=== PATIENT | male | born 1965 | race Caucasian/White ===

== ENCOUNTER → 2019-05-28 | Emergency (ER) | payer OTHER ==
[~2019-05-28] MED LIST: MANNITOL 25% INJ 12.5 GM/50 ML VIAL IV ONE; MANNITOL IV ONE; NICARDIPINE HCL RTU, ISO-OS 20 MG/200 ML RTUINJ IV ONE; NICARDIPINE HCL RTU, ISO-OS 20 MG/200 ML RTUINJ IV PRN; NORMAL SALINE 1000 ML 1,000 ML IV ONE; TRANEXAMIC ACID INJ/PF 1,000 MG/10 ML SDV IV ONE
[2019-05-28] MEDS: NICARDIPINE HCL RTU, ISO-OS 20 MG/200 ML RTUINJ IV PRN ×2 (15:20→17:10)
--- NOTE | 2019-05-28 15:20 | RADIOLOGY REPORT (SQ) ---
EXAM DESCRIPTION: CT HEAD WITHOUT COMPLETED DATE/TIME: 05/28/2019 3:00 pm REASON FOR STUDY: stroke like s.sx COMPARISON: None. TECHNIQUE: Axial images acquired through the brain without intravenous contrast. Images reviewed wi th bone, brain and subdural windows. Additional sagittal and coronal reconstructions were generated. Images stored on PACS. All CT scanners at this facility use dose modulation, iterative reconstruction, and/or weight based d osing when appropriate to reduce radiation dose to as low as reasonably achievable (ALARA). [facility]: Dose Right [facility]: CareDose [facility]: Dose Right [facility]: Teradose 4D [facility]: Smart [place] RADIATION DOSE: CT Rad equipment meets quality standard of care and radiation dose reduction techniq ues were employed. CTDIvol: 53.2 mGy. DLP: 1044 mGy-cm. mGy. LIMITATIONS: None. FINDINGS: VENTRICLES: Normal size and contour. CEREBRUM: There is a large area of intraparenchymal hemorrhage centered within the left parietooccipi edson lobe measuring 5.4 x 5.0 x 4.5 cm (series 2, image 21 and series 401, image 44). There is associ ated effacement of the occipital horn of the left lateral ventricle. There is also extra-axial exten sharla of the blood products along the left holo hemisphere measuring up to 4 mm maximally. There is r ightward midline shift measuring 1.0 cm. There is also associated diffuse sulcal effacement of the l eft hemisphere. There is adjacent confluent hypoattenuation within the left parietal and occipital l obes compatible with edema. No other evidence of large vascular territory infarct. Remaining daniel-w juan differentiation appears preserved. CEREBELLUM: No masses. No hemorrhage. No alteration of density. No evidence for acute infarction. EXTRAAXIAL SPACES: Extra-axial extension of blood products along the left holo hemisphere measuring 4 mm maximally. Diffuse sulcal effacement on the left. ORBITS AND GLOBE: No intra- or extraconal masses. Normal contour of globe without masses. CALVARIUM: No evidence of acute bony abnormality. PARANASAL SINUSES: No fluid or mucosal thickening. SOFT TISSUES: No mass or hematoma. OTHER: No other significant finding. IMPRESSION: 1. Intraparenchymal hemorrhage centered within the left parietooccipital lobe measuring 5.4 x 5.0 x 4.5 cm. There is associated local sulcal effacement and rightward midline shift measuri ng 1.0 cm. Basal cisterns and foramen magnum remain patent. 2. Extra-axial extension of blood products on the left measuring 4 mm maximally. Pertinent positive or negative findings of the imaging study reported as a CRITICAL EXAM to Dr Berg at15:13 on 05/28/2019. Category of Critical Exam: Intracranial bleed EVIDENCE OF ACUTE STROKE: YES. Intraparenchymal hemorrhage COMMENT: Quality ID # 436: Final reports with documentation of one or more dose reduction techniques (e.g., Automated exposure control, adjustment of the mA and/or kV according to patient size, use of iterative reconstruction technique) TECHNICAL DOCUMENTATION: JOB ID: [id number] [employer]- All Rights Reserved Reading location - IP/workstation name: [email or web address]
[2019-05-28 15:24] LABS: ABSOLUTE BASOPHILS # (AUTO) 0.1 10^3/uL (0.0-0.2); ABSOLUTE LYMPHOCYTES (AUTO) 0.8 10^3/uL (0.5-4.7); ABSOLUTE MONOCYTES (AUTO) 0.5 10^3/uL (0.1-1.4); ABSOLUTE NEUT (AUTO) 11.3 10^3/uL (1.7-8.2); BASOPHILS % (AUTO) 0.5 % (0-2); EOSINOPHILS % (AUTO) 0.3 % (0-6); HEMOGLOBIN 13.7 g/dL (13.5-17.0); LYMPHOCYTES % (AUTO) 6.6 % (13-45); MEAN CORPUSCULAR HEMOGLOBIN 29.4 pg (27.0-33.4); MEAN CORPUSCULAR HGB CONC 33.5 g/dL (32.0-36.0); MEAN CORPUSCULAR VOLUME 88 fl (80-97); MONOCYTES % (AUTO) 4.2 % (3-13); PLATELET COUNT 349 10^3/uL (150-450); RED BLOOD COUNT 4.68 10^6/uL (4.35-5.55); RED CELL DISTRIBUTION WIDTH 14.3 % (11.5-14.0); SEGMENTED NEUTROPHILS % (AUTO) 88.4 % (42-78); TOTAL CELLS COUNTED % (AUTO) 100 %; WHITE BLOOD COUNT 12.7 10^3/uL (4.0-10.5)
--- NOTE | 2019-05-28 15:26 | ER Document Report ---
ED Neuro Symptoms/Deficit - General Chief Complaint: S/S of Possible Stroke Stated Complaint: STROKE LIKE SYMPTOMS Time Seen by Provider: 05/28/19 15:08 TRAVEL OUTSIDE OF THE [place] IN LAST 30 DAYS: No - HPI Notes: Patient is a 54-year-old male that presents to the emergency department for chief complaint of headache and aphasia. Patient's is providing history because of patient's aphasia. She states he woke up around 230 this morning from sleep complaining of a diffuse headache. He had increasing headache throughout the day and she noticed that he was becoming more confused. She states that he was trying to find the bathroom in their house but was disoriented. At around 2 PM today he developed a aphasia. He has no history of intracranial hemorrhage or stroke in the past. He does not take any medication daily for chronic medical illnesses. Patient's states he had a fall 4 to 5 months ago and did hit his head but had CT imaging after the fall that was normal and no concussion-like symptoms following. HPI is limited because of patient's aphasia. Past Medical History: Negative Past Surgical History: Negative Social History: Occasional marijuana. Drinks about 12 beers daily Family History: Reviewed and noncontributory for presenting illness Allergies: Reviewed, see documented allergy list. REVIEW OF SYSTEMS: Unable to obtain because of acuity of condition PHYSICAL EXAMINATION: Vital signs reviewed, nursing noted reviewed. GENERAL: Alert, well-nourished HEAD: Atraumatic, normocephalic. EYES: PERRLA, eyes appear normal, extraocular movements intact, sclera anicteric, conjunctiva are normal. ENT: nares patent, oropharynx clear without exudates. Moist mucous membranes. NECK: Normal range of motion, supple without lymphadenopathy LUNGS: Breath sounds clear to auscultation bilaterally and equal. No wheezes rales or rhonchi. HEART: Tachycardic rate and regular rhythm without murmurs ABDOMEN: Soft, no apparent tenderness, normoactive bowel sounds. No rebound, guarding, or rigidity. No masses appreciated. EXTREMITIES: Nontender, good range of motion, no pitting or edema. NEUROLOGICAL: GCS 14. Aphasic. Following some but not all commands. Moving all extremities with motor grossly intact. Unable to assess sensory for paresthesias because of aphasia. Withdraws to painful stimuli in all extremities. SKIN: Warm, Dry, normal turgor, no rashes or lesions noted on exposed skin - Related Data Allergies/Adverse Reactions: No Known Allergies Allergy (Unverified 05/28/19 15:50) Past Medical History - Social History Smoking Status: Never Smoker Family History: Reviewed & Not Pertinent Course - Re-evaluation Re-evalutation: Vitals reviewed. Nursing notes reviewed. Patient is awake and following some commands. He will mumble "yes" and "yep" but is unable to verbalize anything else. He cannot follow directions for ataxia testing but will close his eyes and open them as well as make a fist and relaxant on command. He is moving all extremities with motor grossly intact. Sensory testing is difficult given his current presentation with a aphasia. Patient has a large intraparenchymal hemorrhage with 1 cm of midline shift on CT scan. His head was placed at 45 degrees. Patient was started on Cardene for his hypertension. His care was discussed with Dr. White at [facility] who has accepted patient for transfer. He request patient receive TXA, and 1 g/kg of mannitol IV. He requests a systolic blood pressure less than 160. Patient will be transferred for neurosurgery evaluation. Currently he is protecting his airway. His mental status will continue to be monitored closely. 05/28/19 15:40 Patient reevaluated and has no change in mentation. His neurologic exam is also unchanged. A Bentley catheter will be placed for I's and O's as well as comfort while patient receives mannitol infusion. 05/28/19 16:47 Patient reevaluated. He has no change in neurological exam or mentation. Current blood pressure 124/60. Patient is still on Cardene infusion and [facility]itol[facility] because [facility], currently awaiting ground transportation. Patient's lab work shows a mild leukocytosis. He also has slight elevation of troponin. Patient has not had any complaint of chest pain and in the setting of his intracranial hemorrhage no anticoagulation will be given. EKG shows no STEMI. We will continue to monitor on telemetry. Laboratory 05/28/19 05/28/19 05/28/19 15:06 15:06 15:06 WBC 12.7 H RBC 4.68 Hgb 13.7 Hct 41.0 MCV 88 MCH 29.4 MCHC 33.5 RDW 14.3 H Plt Count 349 Seg Neutrophils % 88.4 H Lymphocytes % 6.6 L Monocytes % 4.2 Eosinophils % 0.3 Basophils % 0.5 Absolute Neutrophils 11.3 H Absolute Lymphocytes 0.8 Absolute Monocytes 0.5 Absolute Eosinophils 0.0 Absolute Basophils 0.1 PT Cancelled INR Cancelled Sodium 137.0 Potassium 4.4 Chloride 99 Carbon Dioxide 28 Anion Gap 10 BUN 11 Creatinine 0.88 Est GFR ( Amer) > 60 Est GFR (Non-Af Amer) > 60 Glucose 113 H POC Glucose Calcium 9.5 Total Bilirubin 1.0 Direct Bilirubin 0.6 H Neonat Total Bilirubin Not Reportable Neonat Direct Bilirubin Not Reportable Neonat Indirect Bili Not Reportable AST 66 H ALT 43 Alkaline Phosphatase 74 Creatine Kinase Cancelled CK-MB (CK-2) Troponin I Total Protein 8.1 Albumin 4.2 05/28/19 05/28/19 05/28/19 15:06 15:13 15:21 WBC RBC Hgb Hct MCV MCH MCHC RDW Plt Count Seg Neutrophils % Lymphocytes % Monocytes % Eosinophils % Basophils % Absolute Neutrophils Absolute Lymphocytes Absolute Monocytes Absolute Eosinophils Absolute Basophils PT 14.3 INR 1.10 Sodium Potassium Chloride Carbon Dioxide Anion Gap BUN Creatinine Est GFR ( Amer) Est GFR (Non-Af Amer) Glucose POC Glucose 107 Calcium Total Bilirubin Direct Bilirubin Neonat Total Bilirubin Neonat Direct Bilirubin Neonat Indirect Bili AST ALT Alkaline Phosphatase Creatine Kinase CK-MB (CK-2) Cancelled Troponin I 0.052 Total Protein Albumin 05/28/19 17:53 I continue to reevaluate this patient and he has been mentating throughout his stay in the emergency room and is protecting his airway. Just prior to transfer arriving he started having a tremor in his jaw and was clenching his teeth. Patient did bite the right lateral aspect of his tongue. There is trace bleeding. No suturing is required. Gauze was placed in patient's cheek to help protect the cheek and tongue from his clenching. Transportation is currently at bedside and he is stable for transfer. - Laboratory Result Diagrams: 05/28/19 15:06 05/28/19 15:06 - EKG Interpretation by Me Additional EKG results interpreted by me: 05/28/19 15:20 Interpreted by myself [id number]: Sinus tachycardia, rate 112, borderline left axis, no ectopy, no STEMI Critical Care Note - Critical Care Note Total time excluding time spent on procedures (mins): 90 Comments: Critical care time 90 exclusive from separate billable procedures for a patient requiring complex medical decision making, and high potential for clinical deterioration. Time spent obtaining history from patient or surrogate, discussions with consultants, development of treatment plan with patient or surrogate, evaluation of patient's response to treatment, examination of patient, ordering and performing treatments and interventions, ordering and review of laboratory studies, re-evaluation of patient's condition, ordering and review of radiographic studies and review of old charts ED NIH Stroke Scale - NIH Stroke Scale *: 1. NIH scale should be completed with appropriate accompanying assessment tools. *: 2. The NIH should reflect what the patient is capable of doing and should not be coached by the clinician. 1a. Level of Consciousness: 0=Alert;keenly responsive -: 1=Drowsy -: 2=Obtunded -: 3=Coma/unresponsive or reflex to noxious stimuli. 1a. Responses: 0 1b. Orientation Questions: a. What month is it? -: b. How old are you? -: 0=Answers both questions correctly. -: 1=Answers one question correctly or patient is intubated or has orotracheal trauma. -: 2=Answers neither question correctly. 1b. Responses: 2 1c. Response to commands: a. Open and close eyes? -: b. Coremaker and release hand? -: Credit is given despite weakness. Demonstration of task is permitted. Substitute command if hands cannot be used. -: 0=Performs both tasks correctly -: 1=Performs one task correctly -: 2=Performs neither task correctly 1c. Responses: 0 2. Gaze: Establish eye contact and instruct patient to "Follow my finger" -: 0=Normal -: 1=Partial gaze palsy. Gaze is abnormal in one or both eyes, but where forced deviation or total gaze paresis is not present. -: 2=Forced deviation or total gaze paresis. 2. Responses: 0 3. Visual Quintero: Sees fingers in all four quadrants. -: 0=No visual loss. -: 1=Partial hemianopsia. -: 2=Complete hemianopsia. -: 3=Bilateral hemianopsia (including Cortical blindness) 3. Responses: 0 4. Facial Movement: Instruct patient to: -: a. Show me your teeth -: b. Raise your eyebrows -: c. Close your eyes -: d. Smile -: 0=Normal symmetrical movement -: 1=Minor paralysis (flattened nasolabial fold, asymmetry on smiling). -: 2=Partial paralysis (total or near total paralysis of lower face). -: 3=Complete paralysis of upper and lower face 4. Responses: 0 5. Motor functions (left arm): Alternate sides and extend each arm with palms down (90 degrees if sitting or 45 degrees for supine). -: 0=No drift;limb holds for full 10 seconds. -: 1=Drift; limb holds but drifts down before full 10 seconds, but does not hit bed. -: 2=Some effort against gravity; limb cannot get to or maintain position. -: 3=No effort against gravity; limb falls. -: 4=No movement. -: UN=Amputation, joint fusion, explain in comments. 5. Responses (left arm): 0 5. Motor Functions (right arm): Alternate sides and extend each arm with palms down (90 degrees if sitting or 45 degrees for supine). -: 0=No drift;limb holds for full 10 seconds. -: 1=Drift; limb holds but drifts down before full 10 seconds, but does not hit bed. -: 2=Some effort against gravity; limb cannot get to or maintain position. -: 3=No effort against gravity; limb falls. -: 4=No movement. -: UN=Amputation, joint fusion, explain in comments. 5. Responses (right arm): 0 6. Motor Functions (left leg): With patient lying supine, alternate sides and extend each leg (30 degrees always while supine). -: 0=No drift, leg holds position for full 5 seconds -: 1=Drift; leg falls before full 5 seconds but does not hit bed. -: 2=Some effort against gravity, leg falls to bed but some effort against gravity. -: 3=No effort against gravity, leg falls to bed immediately. -: 4=No movement. -: UN=Amputation, joint fusion; explain in comments. 6. Responses (left leg): 0 6. Motor Functions (right leg): With patient lying supine, alternate sides and extend each leg (30 degrees always while supine). -: 0=No drift, leg holds position for full 5 seconds -: 1=Drift; leg falls before full 5 seconds but does not hit bed. -: 2=Some effort against gravity, leg falls to bed but some effort against gravity. -: 3=No effort against gravity, leg falls to bed immediately. -: 4=No movement. -: UN=Amputation, joint fusion; explain in comments. 6. Responses (right leg): 0 7. Limb Ataxia: With eyes open instruct patient to: -: a. "Touch your finger to your nose". -: b. "Touch your heel to your talbert" -: 0=Absent -: 1=Present in one limb. -: 2=Present in two limbs. -: UN=Amputation or joint fusion; explain in comments. 7. Responses: UN 8. Sensory: Test sensation using pinprick or noxious stimuli. Test as many body parts as possible. -: 0=Normal;no sensory loss -: 1=Mile to moderate sensory loss (patient feels pin prick but is less sharp on affected side). -: 2=Severe or total sensory loss. 8. Responses: 0 9. Best Language: Instruct patient to: -: a. "Describe what you see in this picture." -: b. "Name the items in this picture." -: c. "Read these sentences." -: 0=No aphasia, normal -: 1=Mild to moderate aphasia. -: 2=Severe aphasia -: 3=Mute, global aphasia, no usable speech or auditory comprehension. 9. Responses: 2 10. Articulation, Dysarthia: Instruct patient to: -: "Read these words" or "Repeat these words" -: 0=Normal -: 1=Mild to moderate; patient may slur some words but can be understood without difficulty. -: 2=Severe; patients speech so slurred as to be unintelligible in the absence of dysphasia. -: UN=Intubated or other physical barrier, explain in comments. 10. Responses: 2 11. Extinction or inattention: 0=No abnormality -: 1= Visual, tactile, auditory, spatial, or personal inattention or extinction to bilateral simulation in one or the sensory modalities. -: 2=Profound lynnette-inattention or lynnette-inattention to more than one modality; does not recognize own hand. 11. Responses: 0 Total Score: 6 Discharge - Discharge Clinical Impression: Intraparenchymal hemorrhage of brain, Aphasia Condition: Critical Disposition: [facility]
[2019-05-28 15:33] LABS: ALANINE AMINOTRANSFERASE 43 U/L (21-72); ALBUMIN 4.2 g/dL (3.5-5.0); ALKALINE PHOSPHATASE 74 U/L (38-126); ANION GAP 10 (5-19); ASPARTATE AMINO TRANSFERASE 66 U/L (17-59); BILIRUBIN,DIRECT 0.6 mg/dL (0.0-0.4); BLOOD UREA NITROGEN 11 mg/dL (7-20); CALCIUM 9.5 mg/dL (8.4-10.2); CARBON DIOXIDE 28 mmol/L (22-30); CHLORIDE 99 mmol/L (98-107); GLUCOSE 113 mg/dL (75-110); POTASSIUM 4.4 mmol/L (3.6-5.0); TOTAL PROTEIN 8.1 g/dL (6.3-8.2)
[2019-05-28 15:41] LABS: PROTHROMBIN TIME 14.3 SEC (11.4-15.4)
--- NOTE | 2019-05-28 16:04 | RADIOLOGY REPORT (SQ) ---
EXAM DESCRIPTION: CHEST SINGLE VIEW COMPLETED DATE/TIME: 05/28/2019 3:55 pm REASON FOR STUDY: stroke like s.sx COMPARISON: None. EXAM PARAMETERS: NUMBER OF VIEWS: One view. TECHNIQUE: Single frontal radiographic view of the chest acquired. RADIATION DOSE: NA LIMITATIONS: None. FINDINGS: LUNGS AND PLEURA: Minimal diffuse interstitial pulmonary opacity. MEDIASTINUM AND HILAR STRUCTURES: No masses. Contour normal. HEART AND VASCULAR STRUCTURES: Cardiomegaly. BONES: No acute findings. HARDWARE: None in the chest. OTHER: No other significant finding. IMPRESSION: Minimal diffuse interstitial pulmonary opacity, likely edema in the setting of cardiomeg fela. No focal airspace opacity. TECHNICAL DOCUMENTATION: JOB ID: [id number] [employer]- All Rights Reserved Reading location - IP/workstation name: [email or web address]
[2019-05-28 17:08] LABS: APPEARANCE,URINE CLEAR; BILIRUBIN,URINE NEGATIVE (NEGATIVE); COLOR,URINE YELLOW; GLUCOSE, URINE NEGATIVE (NEGATIVE); KETONES,URINE 80 mg/dL (NEGATIVE); LEUKOCYTE ESTERASE,URINE NEGATIVE (NEGATIVE); NITRITE,URINE NEGATIVE (NEGATIVE); PROTEIN,URINE 30 mg/dL (NEGATIVE); URINE SPECIFIC GRAVITY 1.023; UROBILINOGEN,URINE NEGATIVE mg/dL (<2.0)
[2019-05-28 17:12] LABS: URINE AMPHETAMINES SCREEN NEGATIVE; URINE BARBITURATES SCREEN NEGATIVE; URINE BENZODIAZEPINES SCREEN UNCONFIRMED POSITIVE; URINE COCAINE SCREEN NEGATIVE; URINE MARIJUANA (THC) SCREEN UNCONFIRMED POSITIVE; URINE METHADONE SCREEN NEGATIVE; URINE PHENCYCLIDINE SCREEN NEGATIVE
[2019-05-28 17:53] VITALS: BP 131/71
--- NOTE | 2019-05-29 00:01 | EKG REPORT ---
SEVERITY:- OTHERWISE NORMAL ECG - SINUS TACHYCARDIA BORDERLINE LEFT AXIS DEVIATION : Confirmed by: Lucille Adorno MD 29-May-2019 00:00:12
== END | disposition short-term general hospital (02) ==
LOC: ER 14:48
DX: I61.8 Other nontraumatic intracerebral hemorrhage (principal); R47.01 Aphasia; R51 Headache
CPT/HCPCS: 93005; 99291; 99292; 51702; 96375; 96365; 96366; 96368; 36415; 82962; 85025; 85610; 80053; 81001; 84484; 80307; 71045; 70450; 93010; J2150; J7030; J3490 ×2

== ENCOUNTER 2019-11-06 01:22 | Emergency (ER) | payer OTHER ==
[2019-11-06] MEDS ORDERED: LORAZEPAM INJ 2 MG/1 ML VIAL IV ONE ×2 (01:48→02:29)
[2019-11-06 01:56] LABS: ABSOLUTE EOSINOPHILS # (AUTO) 0.2 10^3/uL (0.0-0.6); ABSOLUTE MONOCYTES (AUTO) 0.4 10^3/uL (0.1-1.4); ABSOLUTE NEUT (AUTO) 2.2 10^3/uL (1.7-8.2); BASOPHILS % (AUTO) 0.7 % (0-2); EOSINOPHILS % (AUTO) 3.4 % (0-6); HEMATOCRIT 40.5 % (37.9-51.0); HEMOGLOBIN 13.9 g/dL (13.5-17.0); LYMPHOCYTES % (AUTO) 42.4 % (13-45); MEAN CORPUSCULAR HEMOGLOBIN 30.5 pg (27.0-33.4); MEAN CORPUSCULAR HGB CONC 34.4 g/dL (32.0-36.0); MEAN CORPUSCULAR VOLUME 89 fl (80-97); MONOCYTES % (AUTO) 7.6 % (3-13); PLATELET COUNT 209 10^3/uL (150-450); RED BLOOD COUNT 4.57 10^6/uL (4.35-5.55); RED CELL DISTRIBUTION WIDTH 14.8 % (11.5-14.0); SEGMENTED NEUTROPHILS % (AUTO) 45.9 % (42-78); TOTAL CELLS COUNTED % (AUTO) 100 %; WHITE BLOOD COUNT 4.8 10^3/uL (4.0-10.5)
[2019-11-06] MEDS ORDERED: LEVETIRACETAM INJ/PF 500 MG/5 ML SDV IV ONE (02:02)
--- NOTE | 2019-11-06 02:02 | ER Document Report ---
ED General - General Chief Complaint: Probable Seizure Stated Complaint: SEIZURE Time Seen by Provider: 11/06/19 01:47 TRAVEL OUTSIDE OF THE [place]. 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 His adds significantly to the history. Evidently he was lying beside her in bed, awoke her, stated he felt "funny," and was concerned he was having another stroke. The patient really cannot tell me why he felt that way. According to his he has some right-sided visual deficits and occasional diplopia as a result of his stroke, but no other focal neurological deficits. They still follow with neurology advising, in fact saw their neurologist earlier this week. On further questioning, it is noted that the patient did not take either dose of his Keppra today. They are unsure as to his regular Keppra dose. - Related Data Allergies/Adverse Reactions: No Known Allergies Allergy (Unverified 05/28/19 15:50) Past Medical History - General Information source: Patient, Relative - Social History Smoking Status: Former Smoker Frequency of alcohol use: None - Former drinker Family History: Reviewed & Not Pertinent Patient has suicidal ideation: No Patient has homicidal ideation: No Neurological Medical History: Reports: Hx Seizures Renal/ Medical History: Denies: Hx Peritoneal Dialysis Review of Systems - Review of Systems Constitutional: No symptoms reported EENT: No symptoms reported Cardiovascular: No symptoms reported Respiratory: No symptoms reported Gastrointestinal: No symptoms reported Genitourinary: No symptoms reported Musculoskeletal: No symptoms reported Skin: No symptoms reported Neurological/Psychological: See HPI Physical Exam - Vital signs Vitals: Temp Pulse Resp BP Pulse Ox 98 F 113 H 16 143/94 H 98 11/06/19 01:30 11/06/19 01:30 11/06/19 01:30 11/06/19 01:30 11/06/19 01:30 - Notes Notes: Is a 54-year-old male who appears his stated age, no acute distress. He appears postictal, is confused. He is able to intermittently answer questions. He attempts to follow directions, is at times able to, at times unable. Vital signs reviewed, please refer to chart. Head is normocephalic, atraumatic. Pupils equal round, reactive to light. Oral mucosa is moist. He does have some mild bite trauma noted to the right side of the tongue. Neck is supple without meningismus. Heart is regular rate and rhythm. Lungs are clear to auscultation bilaterally. Abdomen is soft, nontender, normoactive bowel sounds throughout. He does have what appears to be myoclonic jerking on the right side of the abdomen intermittently. Extremities without cyanosis, clubbing. Posterior calves are nontender. Peripheral pulses are equal. Skin is warm and dry. Patient is drowsy but arouses easily to verbal stimuli. He is oriented to person and place, disoriented to time. He moves all 4 extremities spontaneously. He is strength is plus 5 out of 5 with good tone. No facial asymmetry. Course - Re-evaluation Re-evalutation: 11/06/19 05:26 Patient presents to the emergency department for evaluation. Initially, I was concerned that the patient in fact had a seizure. This is consistent with his physical exam. I was concerned about the fact that he was having some myoclonic activity in his thoracal abdominal area, so he was administered Ativan. I was notified later by nursing that the patient did have a 45-second seizure activity again. It was at that point that was told by patient's that he did not have any of his Keppra doses that day. He was loaded with 500 of Keppra, sent for CT scan. Laboratory investigations are largely unremarkable. Patient was monitored for several hours here in the emergency department. He remained drowsy, but became back to baseline. He was able to repeat commands, follow them, and repeat directions. The importance of not missing Keppra doses was stressed to both the patient and his . They also need to have close follow- up. It was also explained to the patient that any repeat of the seizure activi ty should prompt an immediate return and potential transfer to [place]. They voiced understanding and the patient was discharged. - Vital Signs Vital signs: Temp Pulse Resp BP Pulse Ox 98 F 113 H 19 138/100 H 100 11/06/19 01:30 11/06/19 01:30 11/06/19 04:30 11/06/19 04:30 11/06/19 04:30 - Laboratory Result Diagrams: 11/06/19 01:39 12/19/19 01:39 Laboratory results interpreted by me: 11/06/19 11/06/19 01:39 01:39 RDW 14.8 H BUN 24 H AST 62 H - Diagnostic Test Radiology reviewed: Image reviewed, Reports reviewed Radiology results interpreted by me: 11/06/19 05:[address] 11/06/19 01:48 IMPRESSION: No definite acute intracranial abnormality. TECHNICAL DOCUMENTATION: Quality ID # [id number]: Final reports with documentation of one or more dose reduction techniques (e.g., Automated exposure control, adjustment of the mA and/or kV according to patient size, use of iterative reconstruction technique) copyright 2011 [employer]- All Rights Reserved Discharge - Discharge Clinical Impression: Seizure Condition: Stable Disposition: HOME, SELF-CARE Instructions: Seizure, Known Epileptic ([facility]) Additional Instructions: Please be sure to take your Keppra as it is directed. Take your dose this morning as prescribed. Contact your neurologist, arrange follow-up. If you have another seizure, or if you develop worsening or new concerning symptoms of any sort, please return immediately to the emergency department for reevaluation.
[2019-11-06 02:14] LABS: ALBUMIN 4.3 g/dL (3.5-5.0); ALCOHOL < 10 mg/dL (NONE DETECTED); ALKALINE PHOSPHATASE 72 U/L (38-126); ANION GAP 14 (5-19); ASPARTATE AMINO TRANSFERASE 62 U/L (17-59); BILIRUBIN,DIRECT 0.2 mg/dL (0.0-0.4); BILIRUBIN,TOTAL 0.4 mg/dL (0.2-1.3); BLOOD UREA NITROGEN 24 mg/dL (7-20); CALCIUM 9.8 mg/dL (8.4-10.2); CARBON DIOXIDE 22 mmol/L (22-30); CHLORIDE 107 mmol/L (98-107); GLUCOSE 102 mg/dL (75-110); POTASSIUM 3.7 mmol/L (3.6-5.0); TOTAL PROTEIN 6.9 g/dL (6.3-8.2)
--- NOTE | 2019-11-06 03:08 | RADIOLOGY REPORT (SQ) ---
EXAM DESCRIPTION: CT HEAD WITHOUT IV CONTRAST COMPLETED DATE/TME: 11/06/2019 01:48 CLINICAL HISTORY: 54 years, Male, likely seizure, AMS, CVA hx COMPARISON: 05/28/2019 TECHNIQUE: Axial CT images of the brain were obtained without contrast. Sagittal and coronal reformats were performed. [facility] [id number] Images stored on PACS. All CT scanners at this facility use dose modulation, iterative reconstruction, and/or weight based dosing when appropriate to reduce radiation dose to as low as reasonably achievable (ALARA). [facility]: Dose Right [facility]: CareDose [facility]: Dose Right [facility]: Teradose 4D [facility]: [employer] LIMITATIONS: None. FINDINGS: The patient was scanned 3 times as the patient moved each time. Since the previous examination, there are changes of a left craniotomy with encephalomalacia of the left occipital lobe. No definite acute cortical infarct, hemorrhage, mass, edema, or hydrocephalus. Long-white matter differentiation appears preserved. There is mild ex vacuo dilatation of the left posterior horn. The paranasal sinuses and mastoid air cells are clear. No acute fracture is identified. IMPRESSION: No definite acute intracranial abnormality. TECHNICAL DOCUMENTATION: Quality ID # [id number]: Final reports with documentation of one or more dose reduction techniques (e.g., Automated exposure control, adjustment of the mA and/or kV according to patient size, use of iterative reconstruction technique) copyright 2011 [employer]- All Rights Reserved
[2019-11-06 05:36] VITALS: BP 141/97
--- NOTE | 2019-11-06 08:46 | EKG REPORT ---
SEVERITY:- ABNORMAL ECG - SINUS TACHYCARDIA NONSPECIFIC INTRAVENTRICULAR CONDUCTION DELAY : Confirmed by: Edel Almodovar 06-Nov-2019 08:45:46
== END 2019-11-06 05:55 | disposition home or self-care (01) ==
LOC: ER 01:22
DX: R56.9 Unspecified convulsions (principal); T42.6X6A Underdosing of other antiepileptic and sedative-hypnotic drugs, initial encounter; S01.552A Open bite of oral cavity, initial encounter; X58.XXXA Exposure to other specified factors, initial encounter; Z91.14 Patient's other noncompliance with medication regimen; R40.0 Somnolence; R41.0 Disorientation, unspecified; I69.398 Other sequelae of cerebral infarction; H53.2 Diplopia; Z79.899 Other long term (current) drug therapy; Z87.891 Personal history of nicotine dependence
CPT/HCPCS: 93005; 36415; 80177; 80307; 83735; 85025; 80053; 70450; 93010; J2060; J1953; 96365; 96375; 96376; 99284